=== PATIENT | female | born 1950 | race American Indian/Alaskan Native ===

== ENCOUNTER 2016-12-27 13:06 | Outpatient (CLI) | payer MEDICARE ==
[2016-12-27] MEDS ORDERED: NACL ONE (15:10)
--- NOTE | 2016-12-27 16:14 | Cat Scan Report ---
CT scan of chest with IV contrast: History: Abnormal chest x-ray. Findings: No endobronchial or mediastinal mass. No mediastinal, hilar or axillary adenopathy. Subcentimeter lymph nodes identified in the mediastinum. No pleural or pericardial effusion. Linear ill-defined density right upper lobe suggestive of segmental atelectasis. Adjacent nodular densities which are not calcified. There is scarring noted in the upper lobes bilaterally with centrilobular emphysema.Subpleural small blebs are identified bilaterally. There is focal spiculated density identified in the left lung perihilar region image 104 series 2. Suspicious for neoplasm. Normal liver pancreas adrenals and gallbladder. Impression: Spiculated density left lung as detailed above. Suspicious for neoplasm. Further evaluation advised. Additional findings as detailed above.
== END 2016-12-27 13:07 | disposition home or self-care (01) ==
LOC: CT 13:06
PROVIDERS: ATTEND Family Medicine
DX: J43.2 Centrilobular emphysema (principal); J98.4 Other disorders of lung; R93.8 Abnormal findings on diagnostic imaging of other specified body structures
CPT/HCPCS: 36415; 71260; 82565; 84520; Q9967

== ENCOUNTER 2018-03-14 09:12 | Outpatient (CLI) | payer MEDICARE ==
--- NOTE | 2018-03-14 15:38 | Mammography Report ---
BILATERAL DIGITAL SCREENING MAMMOGRAM with CAD: 03/14/18 09:12:00 CLINICAL: Routine screening. COMPARISON:None available. FINDINGS: The breasts are almost entirely fatty.Benign fat necrosis in the left breast at 1 o'clock approximately 7 cm from the nipple and consists of a 6 mm oil cyst and benign calcifications. Several left upper outer and axillary lymph nodes with benign morphology. No mass, architectural distortion or suspicious calcifications. IMPRESSION: No mammographic evidence of malignancy. Benign fat necrosis upper outer left breast. BI-RADS CATEGORY: 2 -- Benign RECOMMENDATION: Routine mammographic screening in one year. COMMENT: Patient follow-up letters are generated by our [employer] application.
== END 2018-03-14 09:13 | disposition home or self-care (01) ==
LOC: MAMMO 09:12
PROVIDERS: ATTEND Family Medicine
DX: Z12.31 Encounter for screening mammogram for malignant neoplasm of breast (principal)
CPT/HCPCS: 77067

== ENCOUNTER 2021-12-23 12:59 | Outpatient (CLI) | payer MEDICARE ==
--- NOTE | 2021-12-23 14:16 | Cat Scan Report ---
CT CHEST WITHOUT CONTRAST INDICATION / CLINICAL INFORMATION: D86.9 COPD SARCOIDOSIS. TECHNIQUE: Axial CT images were obtained through the chest without contrast. All CT scans at this [facility] ation are performed using CT dose reduction for ALARA by means of automated exposure control. COMPARISON: None available. FINDINGS: HEART: No significant abnormality. 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 MEDIASTINUM / ROB: No significant abnormality. No adenopathy. PLEURA: No pleural effusion. No pneumothorax. LUNGS: Mild to moderate underlying emphysematous changes are present and unchanged. There is focal ir regular scarring or segmental atelectasis in the anterior right upper lobe which appears slightly imp roved since the previous exam. There is a 1 cm linear spiculated density in the lateral left upper lo be which is unchanged. Similar appearing subcentimeter spiculated density in the superior segmental l eft lower lobe is also unchanged. No new pulmonary nodule or mass. No peribronchial and paraseptal n odularity to suggest sarcoidosis is detected. No acute infiltrate or interstitial disease. ADDITIONAL FINDINGS: None. UPPER ABDOMEN: No significant abnormality. SKELETAL SYSTEM: No significant abnormality. IMPRESSION: No significant change since 12/27/2016. Emphysematous changes. Scarring or spiculated densities in the upper lung zones as described which are unchanged since the p revious exam. No new nodule or mass. No convincing pulmonary findings of sarcoidosis are identified. Moderate to severe coronary artery calcifications. Signer Name: Alex Jacobo Jr, MD Signed: 12/23/2021 2:12 PM Workstation Name: [id number]
--- NOTE | 2021-12-23 14:17 | XRay Report ---
CHEST 2 VIEWS INDICATION / CLINICAL INFORMATION: SARCOIDOSIS. COMPARISON: CT chest dated 12/27/2016. FINDINGS: SUPPORT DEVICES: None. HEART / MEDIASTINUM: No significant abnormality. LUNGS / PLEURA: No significant pulmonary or pleural abnormality. No pneumothorax. ADDITIONAL FINDINGS: No significant additional findings. IMPRESSION: 1. No acute findings. Signer Name: Alex Jacobo Jr, MD Signed: 12/23/2021 2:12 PM Workstation Name: [id number]
[2021-12-23 14:51] LABS: Albumin 4.2 g/dL (3.9-5); Calcium 10.4 mg/dL (8.4-10.2); Chol/HDL Ratio 3.51 %
[2021-12-23 15:08] LABS: Hematocrit 39.4 % (30.3-42.9); Hemoglobin 12.6 gm/dl (10.1-14.3); Mean Corpuscular HGB Conc 32 % (30-34); Mean Corpuscular Volume 90 fl (79-97); Platelet Count 285 K/mm3 (140-440); Red Blood Count 4.37 M/mm3 (3.65-5.03); Red Cell Distribution Width 16.3 % (13.2-15.2)
== END 2021-12-23 13:00 | disposition home or self-care (01) ==
LOC: CT 12:59
PROVIDERS: ATTEND Internal Medicine
DX: J44.9 Chronic obstructive pulmonary disease, unspecified (principal); I25.10 Atherosclerotic heart disease of native coronary artery without angina pectoris; D86.9 Sarcoidosis, unspecified; E11.22 Type 2 diabetes mellitus with diabetic chronic kidney disease; N18.30 Chronic kidney disease, stage 3 unspecified
CPT/HCPCS: 71046; 71250; 80053; 80061; 82164; 84436; 84443; 85027